=== PATIENT | female | born 1990 ===

== ENCOUNTER 2019-09-03 15:09 | Emergency (ER) | payer SELFPAY ==
[~2019-09-03] VITALS: Ht 165.1 cm; Wt 90.9 kg
[2019-09-03 15:17] VITALS: TEMP 98.1
[2019-09-03] MEDS ORDERED: COMPAZINE 110 MG/TAB PO (16:42)
[2019-09-03 17:07] VITALS: BP 98/71; PULSE 86
== END 2019-09-03 17:07 | disposition home or self-care (01) ==
LOC: COL.ER 15:09
DX: R51 Headache (principal); F17.210 Nicotine dependence, cigarettes, uncomplicated
CPT/HCPCS: J1885; J2550